=== PATIENT | male | born 1950 | race Caucasian/White ===

== ENCOUNTER 2018-06-21 08:14 | Emergency (ER) | payer BC, MEDICARE ==
[~2018-06-21] VITALS: Ht 182.9 cm; Wt 86.2 kg
[~2018-06-21 08:14] MED LIST: AMOCLA875 PO; CYCL10 PO; Norco 5-325 Ta1 EACH PO; OXYACE5T PO; PSEU30 PO; Prilosec10 M1 PO; SERT50 PO
[2018-06-21] MEDS ORDERED: ATOR10 PO (09:01)
[2018-06-21] MEDS ORDERED: OMEPRAZOLE MAGN20 MG PO (09:01)
[2018-06-21] MEDS ORDERED: Keflex500 MG PO (09:12)
[2018-06-21] MEDS ORDERED: IBUP600 PO (09:12)
== END 2018-06-21 09:37 | disposition home or self-care (01) ==
LOC: ER 08:14
DX: L03.211 Cellulitis of face (principal); Z79.899 Other long term (current) drug therapy
CPT/HCPCS: 99283